=== PATIENT | male | born 1955 | race Caucasian/White ===

== ENCOUNTER 2016-12-09 20:59 | Observation (INO) | payer MEDICARE ==
--- NOTE | ~2016-12-09 | DS ---
Discharge Summary [facility] [address] [place]. [address] NAME: CHELO HAMPTON : 55 STATUS : DIS Hazel PAT#: [id number] AGE: 61 ADM/REG DATE : 12/09/16 MR#: [id number] REPORT SERV DATE: 12/11/16 DICTATED BY: GOLD CASTILLO DATE: 12/10/16 REPORT STATUS : Draft TRANSCRIBED BY: MODL DATE: 12/10/16 ADMISSION DATE: 12/09/2016 DISCHARGE DATE: 12/10/2016 CHIEF COMPLAINT ON ADMISSION: Dark stools with abdominal pain. DISCHARGING DIAGNOSES: 1. Diarrhea of uncertain etiology. 2. History of Damon's esophagitis. HISTORY OF PRESENT ILLNESS: Please see full H and P by Dr. Jamison Morse for details regarding initial presentation. HOSPITAL COURSE: 1. Dark stools for two weeks with diarrhea and abdominal cramping. The patient was seen by GI. The patient had EGD today. Hemoglobin has been stable. EGD was unremarkable with normal exam. Recommended use of Protonix 40 mg daily and return to GI Clinic for followup. In regard to his diarrhea, he said stool was less watery today and more mushy. has also had diarrhea for several weeks. Stool studies have been ordered, not sent at this time. GI has recommended outpatient followup. We will order for a followup appointment with first available with Dr. Corona. Hemoglobin is 13.9 at discharge, was 14.1 on admission. 2. History of diabetes. Continue outpatient regimen. Hemoglobin A1c is 8.3. This is uncontrolled at baseline. Follow up with primary care. DISCHARGE MEDICATIONS: Same as admission. Time spent on discharge, greater than 30 minutes. DNK/MODL Gold Castillo MD / [id number] CC: MD Joselito Painter MD
--- NOTE | ~2016-12-09 | HP ---
History And Physical [place] [id number] [facility] [place]. [address] NAME: CHELO HAMPTON : 55 STATUS : ADM Hazel PAT#: [id number] AGE: 61 ADM/REG DATE : 12/09/16 MR#: [id number] REPORT SERV DATE: 12/10/16 DICTATED BY: GAYATHRI SULTANA DATE: 12/10/16 REPORT STATUS : Draft TRANSCRIBED BY: MODL DATE: 12/10/16 DATE OF ADMISSION: 12/09/2016 CHIEF COMPLAINT: Dark stools with abdominal pain. HISTORY OF PRESENT ILLNESS: The patient is a 61-year-old male with past medical history of Damon's esophagitis, pancreatitis, chronic GI bleed, COPD, hypertension, coronary artery disease status post CABG, prior tobacco history, has quit over year, insulin dependent diabetes, who presents after having two weeks of diarrhea and dark stools. The patient has exposures with his having similar symptoms although hers are not dark stools, but does have diarrhea. Symptoms have been constant, moderate severity, up to 6-7 bowel movements daily that have been dark with cramping pressure. Medication given in emergency room has resolved these symptoms with Levsin. There are no radiating symptoms. The patient has had resultant weakness but no nausea, vomiting, diaphoresis, shortness of breath, fever, chills, cough or wheezing or palpitations but does have occasional symptomatic orthostasis when he bends over. Symptoms are worsened with bending over, relieved by resting and Levsin that was given in emergency room. Symptoms are significantly improved and better at this time. He does take a daily 81 mg aspirin but does have episodes which his blood sugars are quite uncontrolled with highs in 300s, lows in 50s. REVIEW OF SYSTEMS: GENERAL: No fevers, but does have mild weakness. EYES: No pain or visual changes. ENT: No congestion or ear pain. NEURO: No headache, but does have mild dizziness with bending over. SKIN: No rashes or bruising. RESPIRATORY: No shortness of breath or cough. CV: No chest pain or palpitations. GI: Does have diarrhea with dark stools, abdominal pain. No vomiting. : No dysuria, hematuria. MUSCULOSKELETAL: No myalgias or arthralgias. ENDO: Does have mild increased fatigue, but no polyuria. HEME: No bleeding or bruising. IMMUNOLOGIC: No rhinorrhea. PSYCH: No confusion or anxiety. PAST MEDICAL HISTORY: Insulin-dependent diabetes, hyperlipidemia, chronic pancreatitis secondary to pancreatic stone, severe Damon's esophagus with hiatal hernia on high-dose PPI history, history of GI bleed, coronary disease status post CABG, hyperlipidemia. SURGICAL HISTORY: Hammertoe left foot, hardware surgery around 20 years ago, pancreatic duct, stone removal, surgery for hiatal hernia by Dr. Trivedi, and CABG. ALLERGIES: TO MORPHINE. SOCIAL HISTORY: , accompanied by . Prior smoker up to 2 packs a day. Prior History And Physical [address] 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 Has quit smoking over a year ago. No alcohol or illicits. FAMILY HISTORY: Brother with gallstones and heart disease in mother. Father had heart disease, hypertension, and diabetes also in mother. ALLERGIES: MORPHINE. HOME MEDICATIONS: Refresh tears, Halfprin, atorvastatin, Bentyl, vitamin D, hydrochlorothiazide, [place], NovoLog, Lantus, Mag oxide, Glucophage, Centrum, Prilosec, Incruse tablets, Creon, Imitrex, and Effexor. PHYSICAL EXAMINATION: VITAL SIGNS: The patient blood pressure 137/95, temperature 98.5, pulse 93, respirations 16, O2 sats 97%. GENERAL: Elderly, no acute distress, calm. EYES: No scleral icterus. EOMI. ENT: Dry mucous membranes. Tongue midline. HEAD: Normocephalic and atraumatic. RESPIRATORY: Clear to auscultation. No wheezes or rales. CV: Regular rate. No rubs. No pedal edema. GI: Soft, mild tenderness to left quadrant, negative rebound. No fluid wave. : Deferred. MUSCULOSKELETAL: Moves all extremities x4. SKIN: Warm, dry. LYMPH: No cervical or supraclavicular lymphadenopathy. HEME: No bleeding or bruising. NEURO: Alert and oriented. Moves all extremities x4. Gait not tested. PSYCH: Appropriate mood and affect. HEME: Positive per ED staff. LABS: CBC: WBC 11, H and H 14.1 and 41.2, platelets 273. INR 1.1. CMP grossly within normal limits with elevated blood glucose of 213. CT abdomen and pelvis, no acute abdominal or pelvic pathology. Mild diverticulosis, sigmoid colon. No acute diverticulitis, simple 5.4 left cyst similar to prior exam. ASSESSMENT AND PLAN: 1. Dark stools with diarrhea. 2. Hyperglycemia, diabetes type 2. 3. Hypertension. 4. Chronic pancreatitis. 5. Coronary artery disease status post CABG history. 6. Damon's esophagitis. 7. Hyperlipidemia. 8. Tobacco use history, quit over year ago. PLAN: History And Physical [address] [address] NAME: CHELO HAMPTON : 55 STATUS : ADM Hazel PAT#: [id number] AGE: 61 ADM/REG DATE : 12/09/16 MR#: [id number] REPORT SERV DATE: 12/10/16 DICTATED BY: GAYATHRI SULTANA DATE: 12/10/16 REPORT STATUS : Draft TRANSCRIBED BY: MARY DATE: 12/10/16 1. For dark stools and diarrhea, does have history of upper esophagitis, was previously on high-dose PPI currently on 40 mg p.o. daily. We will do serial H and Hs, retic, iron studies, H and H q.8 h. He was to have outpatient workup with Dr. Corona but admitted due to symptomatic weakness and approximately 2 weeks of dark stools. Hemodynamically stable. We will monitor serial H and Hs, PPI drip, and GI evaluation. 2. Hyperglycemia with diabetes type 2. Sliding scale insulin. Check A1c. Decrease home dose. The patient has had very labile blood sugars, and diabetic education. 3. Hypertension, currently acceptable, monitor with GI bleed. 4. Chronic pancreatitis, monitor symptoms, check lipase. 5. Coronary artery disease status post CABG. Continue home medications. Transfuse if hemoglobin less than 8. 6. Damon's esophagitis, PPI drip. 7. Hyperlipidemia, statin. 8. Tobacco use history, quit over a year ago. All questions answered with patient and family at bedside. DDN/MODL Gayathri Sultana MD / [id number] CC: Messi Griffith Jr, MD
--- NOTE | ~2016-12-09 | CN ---
Consultation Report [facility] [address] [place]. [address] NAME: CHELO MATTHEWS : 55 STATUS : ADM Hazel PAT#: [id number] AGE: 61 ADM/REG DATE : 12/09/16 MR#: [id number] REPORT SERV DATE: 12/10/16 DICTATED BY: BRINDA HERNANDEZ DATE: 12/10/16 REPORT STATUS : Draft TRANSCRIBED BY: MODL DATE: 12/10/16 GI CONSULTATION DATE OF CONSULTATION: 12/10/2016 REASON FOR CONSULTATION: Evaluation and management of black stools, diarrhea, abdominal pain and cramping. HISTORY OF PRESENT ILLNESS: Mr. Matthews is a 61-year-old male patient known to Dr. Corona in the outpatient setting, who presented to [facility] on the 12/09/2016 with a chief complaint of melena, diarrhea, ongoing for two weeks. He had called the office yesterday and was directed by the office staff to come to [facility] secondary to his symptoms of black stools. He states that his had had similar symptoms a week prior to his symptom onset but her's has since subsided. She did have diarrhea but not black tarry stools. He states that his stools are black, "coal" like appearance. He complains of abdominal cramps that are lessened with bowel movements. He has had nausea but no emesis. He has had some chilling but no fevers. He denies any recent antibiotic usage. He is only on an 81 mg aspirin a day; denying any NSAID use, specifically no Aleve, ibuprofen, Motrin, Excedrin, Goody's Powder, [place] powders, or BC powders. He states that he is unable to really eat anything of any significance secondary to immediate abdominal pain and cramping and diarrhea. He had a CT scan done on admission, non-contrasted. No acute abdominal or pelvic pathology was seen. He did have some mild diverticulosis but no acute diverticulitis pattern. Hemoglobin is stable at 14.1, presently is 13.5. He had a slightly elevated white count on admission at 11.0. He is presently still having diarrhea, but no stool studies have been sent. I have discussed with the patient as Dr. Waller was contacted overnight, made the patient n.p.o. for EGD today. We will pursue EGD. Risks, benefits, alternatives, and complications were detailed for him to include, but not limited to, risk of bleeding, perforation, infection, reaction to medications as well as cardiac and pulmonary side effects. He gives consent to proceed. His last EGD was done in 2013. On 03/10/2014, he had EGD at the time of pancreatic stent removal. He had a normal esophagus, findings of a Alejandro fundoplication, and otherwise the duodenum was normal. Also, his last colonoscopy was on 07/03/2014. Findings on that exam, he had two 5 to 6 mm polyps in the sigmoid colon that were removed, a 6 mm polyp in the descending colon removed, 4 mm polyp in the ascending colon removed, and diverticulosis in the sigmoid colon. He was seen in the office in September of 2016. At that time, he only had some intermittent periumbilical pain, bloating distention after meals being noted. PAST MEDICAL HISTORY: Positive for diverticulosis, colon polyps, Damon's esophagus, chronic pancreatitis, hyperlipidemia, type 2 diabetes,hiatal hernia with Alejandro fundoplication, past history of GI bleeding, coronary artery disease status post status post CABG. SURGICAL HISTORY: Alejandro fundoplication, hammertoe of the left foot surgery, pancreatic duct stent with stone removal, CABG. Consultation Report [address] [place]. [address] NAME: CHELO MATTHEWS : 55 STATUS : ADM Hazel PAT#: [id number] AGE: 61 ADM/REG DATE : 12/09/16 MR#: [id number] REPORT SERV DATE: 12/10/16 DICTATED BY: BRINDA HERNANDEZ DATE: 12/10/16 REPORT STATUS : Draft TRANSCRIBED BY: MARY DATE: 12/10/16 SOCIAL HISTORY: He is . Previous history of tobacco. No alcohol nor illicits. FAMILY HISTORY: Noncontributory from a GI standpoint. ALLERGIES: MORPHINE. HOME MEDICATIONS: Refresh, aspirin, Lipitor, Bentyl, vitamin D, hydrochlorothiazide, [place], NovoLog, Lantus, magnesium oxide, Glucophage, Centrum, Prilosec, Incruse Ellipta, Creon, Imitrex, and Effexor. REVIEW OF SYSTEMS: A 10-point review of systems obtained. Pertinent positives addressed in the history of present illness. PERTINENT LABORATORY DATA: Sodium 139, potassium 4.1, BUN is 12, creatinine 0.83. White count 9.2, hemoglobin 13.5, hematocrit 39.9, platelet count 256. INR of 1.1. PHYSICAL EXAMINATION: VITAL SIGNS: Temperature 97.7, pulse 92, respirations 18, blood pressure 138/67. NEUROLOGIC: Physical exam reveals an alert male, sitting up in a chair with no focal deficits. GENERAL: Cooperative, in no apparent distress. Awake, alert, oriented x3. HEAD EARS, EYES, NOSE, AND THROAT: Anicteric. Pupils equal, round, reactive to light and accommodation. Normocephalic and atraumatic. NECK: No JVD. No palpable nodes. Supple. LUNGS: Decreased in the bases, clear in the upper lobes with normal respiratory effort exhibited. Equal expansion. CARDIOVASCULAR: Regular rate and rhythm. ABDOMEN: Soft, mildly tender to palpation diffusely, nondistended. No rebound or guarding elicited on exam. No organomegaly appreciated. EXTREMITIES: No edema. Normal distal pulses. SKIN: Warm, dry, and intact. ASSESSMENT: 1. "Melena" for the last two weeks. 2. Diarrhea with abdominal cramping. Differential diagnosis includes gastroenteritis, peptic ulcer disease, irritable bowel syndrome. 3. Weakness. 4. History of Damon's esophagus. 5. History of diverticulosis. PLAN: 1. NPO. 2. Stool studies. Consultation Report [address] [address] NAME: CHELO MATTHEWS : 55 STATUS : ADM Hazel PAT#: [id number] AGE: 61 ADM/REG DATE : 12/09/16 MR#: [id number] REPORT SERV DATE: 12/10/16 DICTATED BY: BRINDA HERNANDEZ DATE: 12/10/16 REPORT STATUS : Draft TRANSCRIBED BY: MODL DATE: 12/10/16 3. EGD today. 4. Add Florastor. 5. Other recommendations to follow endoscopy. ANGELIKA/MARY DELTA Garcia / [id number]
--- NOTE | ~2016-12-09 | EGD ---
EGD REPORT [facility] [address] [address] NAME: CHELO MATTHEWS : 55 STATUS : ADM Hazel PAT#: [id number] AGE: 61 ADM/REG DATE : 12/09/16 MR#: [id number] REPORT SERV DATE: 12/10/16 DICTATED BY: MESSI MIGUEL DATE: 12/10/16 REPORT STATUS : Draft TRANSCRIBED BY: [facility] DATE: 12/10/16 Endoscopy Center Patient Name: Chelo Matthews Date of : 1955 Attending MD: MESSI MIGUEL MD Procedure Date No Time: 12/10/2016 Procedure: Upper GI endoscopy Indications: Melena, Suspected upper gastrointestinal bleeding Referring MD: YUE HAMPTON Medicines: Monitored Anesthesia Care Complications: No immediate complications. Estimated blood loss: None. Procedure: After obtaining informed consent, the endoscope was passed under direct vision. Throughout the procedure, the patient's blood pressure, pulse, and oxygen saturations were monitored continuously. The GIF [id number] was introduced through the mouth, and advanced to the second part of duodenum. The upper GI endoscopy was accomplished without difficulty. The patient tolerated the procedure well. Findings: The examined esophagus was normal. Evidence of an anti-reflux surgical site was found in the gastric fundus. The anastomosis was characterized by healthy appearing mucosa. The examined duodenum was normal. Impression: - An anti-reflux surgical site was found, anastomosis characterized by healthy appearing mucosa. - Exam otherwise normal Recommendation: - Return patient to hospital gardner for observation. - Use Protonix (pantoprazole) 40 mg PO daily. - Return to GI clinic at the next available appointment. Procedure Code(s): --- Professional --- 62677, Esophagogastroduodenoscopy, flexible, transoral; diagnostic, including collection of specimen(s) by brushing or washing, when performed (separate procedure) Diagnosis Code(s): --- Professional --- Z98.89, Other specified postprocedural states K92.1, Melena CPT copyright 2013 [employer]. All rights reserved. EGD REPORT [facility] [address] [place] [address]. [address] NAME: CHELO MATTHEWS : 55 STATUS : ADM Hazel PAT#: [id number] AGE: 61 ADM/REG DATE : 12/09/16 MR#: [id number] REPORT SERV DATE: 12/10/16 DICTATED BY: MESSI MIGUEL DATE: 12/10/16 REPORT STATUS : Draft TRANSCRIBED BY: [employer] DATE: 12/10/16 The codes documented in this report are preliminary and upon oil gas and pipe tester review may be revised to meet current compliance requirements. Messi Miguel MD MESSI MIGUEL MD 12/10/2016 10:46 AM This report has been signed electronically. Number of Addenda: 0 Note Initiated On: 12/10/2016 10:19 AM Scope Withdrawal Time 0 hours 0 minutes [address] [place] [id number]
[2016-12-09 17:58] LABS: BASOPHILS 0.5 %; BASOPHILS ABSOLUTE 0.05 10/3/uL (0.0-0.16); EOSINOPHILS 2.3 %; EOSINOPHILS ABSOLUTE 0.25 10/3/uL (0.0-0.53); ER CBC TAT 0 Hrs 05 Mins; HEMATOCRIT 41.2 % (40.0-51.0); HEMOGLOBIN 14.1 g/dL (13.6-17.8); IMMATURE GRANULOCYTES 0.5 %; IMMATURE GRANULOCYTES ABSOLUTE 0.06 10/3/uL (0.0-0.11); LYMPHOCYTES 15.3 %; LYMPHOCYTES ABSOLUTE 1.68 10/3/uL (0.67-4.30); MEAN CORPUS HGB CONC 34.2 g/dL (32.0-36.0); MEAN CORPUSCULAR HEMOGLOB 29.7 pg (26.0-34.0); MEAN CORPUSCULAR VOLUME 86.7 fL (80-100); MEAN PLATELET VOLUME 9.7 fL (9.2-13.0); MONOCYTES 10.9 %; MONOCYTES ABSOLUTE 1.19 10/3/uL (0.21-1.20); NEUTROPHILS 70.5 %; NEUTROPHILS ABSOLUTE 7.73 10/3/uL (2.02-8.40); RBC DISTRIBUTION WIDTH 14.1 % (12.0-16.0); RED CELL COUNT 4.75 10/6/uL (4.7-6.1)
[2016-12-09 18:00] LABS: MANUAL DIFF NO %; PLATELET COUNT 273 10/3/uL (150-400)
[2016-12-09 18:12] LABS: INTERNATIONAL NORMAL RATI 1.1 UNITS (-); PROTIME (NOT ORD) 13.7 SEC (12.0-14.5)
[2016-12-09 18:13] LABS: PARTIAL THROMBO TIME 33.8 SEC (22.5-37.2)
[2016-12-09 18:16] LABS: ALBUMIN 3.5 G/DL (3.5-5.0); BUN (BLOOD UREA NITROGEN) 10 MG/DL (6-23); CALCIUM, SERUM 8.9 MG/DL (8.5-10.4); CHLORIDE, SERUM 101 MMOL/L (96-112); CO2 (CARBON DIOXIDE) 25 MMOL/L (24-34); CREATININE 0.91 MG/DL (0.70-1.30); GFR AFRICAN AMERICAN 105 ML/MIN (>=60); GFR NON AFRICAN AMERICAN 91 ML/MIN (>=60); GLOBULIN 3.6 G/DL (2.5-4.1); GLUCOSE, SERUM 213 MG/DL (60-99); POTASSIUM, SERUM 4.1 MMOL/L (3.5-5.3); SGOT(AST) 23 U/L (5-40); SGPT(ALT) 37 U/L (5-65); SODIUM, SERUM 138 MMOL/L (135-148); TOTAL BILIRUBIN 0.4 MG/DL (0-1.2); TOTAL PROTEIN 7.1 G/DL (6.0-8.5)
[2016-12-09 18:19] LABS: ALKALINE PHOSPHATASE 102 U/L (45-117)
[~2016-12-09 20:59] MED LIST: AMIT10 PO; ASAB PO; AUG500 PO; BENTYL10 PO; CENTRUM TAB1 TAB PO; CREON DR 36,001 EACH PO; CREON12000 UNT PO; FLORASTOR250 MG PO; GLUCOPHAGE1000 MG PO; HUMALOG SC; IMDUR30 PO; IMITREX50 PO; INSNOVR SC; JANUVIA100 MG PO; LANTUSCART SC; LEVBID PO; LEVEMFLXPN SC; LIPITOR40 PO; LOP25 PO; NEUR300 PO; NORCO1 TA1 PO; NORCO1 TA2 PO; NORCO1 TAB PO; P10 PO; P20 PO; P5 PO; PR25 PO; PRAVACHOL40 MG PO; PRILO PO; PROAIR HFA INH; PROTONIX PO; REFRESH TEAR0.5 % OP; SPIRIVA INH; STARLIX60 PO; SYSTANE OPH; WELLXL150 PO; ZEGERID1 CAP PO; ZENPEP5000 UNIT PO; ZOFRAN ODT4 MG PO; [UNRECOGNIZED DRUG - CODE]
[2016-12-09] MEDS ORDERED: NOVOPEN SC ×3 (23:35→23:37)
[2016-12-09] MEDS ORDERED: LANTUSCART SC (23:37)
[2016-12-09] MEDS ORDERED: HALF81 PO (23:38)
[2016-12-09] MEDS ORDERED: INCRUSE ELLI62.5 MCG INH (23:38)
[2016-12-09] MEDS ORDERED: GLUCOPHAGE1000 MG PO (23:38)
[2016-12-09] MEDS ORDERED: HCTZ12.5 PO (23:39)
[2016-12-09] MEDS ORDERED: EFFEX75 PO (23:39)
[2016-12-09] MEDS ORDERED: MAGOX4 PO (23:40)
[2016-12-09] MEDS ORDERED: LIPITOR40 PO (23:40)
[2016-12-09] MEDS ORDERED: BENTYL10 PO (23:40)
[2016-12-09] MEDS ORDERED: VITD PO (23:40)
[2016-12-09] MEDS ORDERED: CREON 24,000 UNITS PO (23:41)
[2016-12-09] MEDS ORDERED: PRILOSEC40 MG PO (23:41)
[2016-12-09] MEDS ORDERED: NORCO1 TAB PO (23:42)
[2016-12-09] MEDS ORDERED: CENTRUM PO (23:42)
[2016-12-09] MEDS ORDERED: REFRESH OPH SO0.3 ML OPH (23:42)
[2016-12-09] MEDS ORDERED: IMITREX50 PO (23:44)
[2016-12-10 03:43] LABS: BASOPHILS 0.5 %; BASOPHILS ABSOLUTE 0.05 10/3/uL (0.0-0.16); EOSINOPHILS 3.2 %; EOSINOPHILS ABSOLUTE 0.29 10/3/uL (0.0-0.53); HEMATOCRIT 39.9 % (40.0-51.0); HEMOGLOBIN 13.5 g/dL (13.6-17.8); IMMATURE GRANULOCYTES 0.9 %; IMMATURE GRANULOCYTES ABSOLUTE 0.08 10/3/uL (0.0-0.11); LYMPHOCYTES 22.1 %; LYMPHOCYTES ABSOLUTE 2.03 10/3/uL (0.67-4.30); MEAN CORPUS HGB CONC 33.8 g/dL (32.0-36.0); MEAN CORPUSCULAR HEMOGLOB 29.7 pg (26.0-34.0); MEAN CORPUSCULAR VOLUME 87.7 fL (80-100); MEAN PLATELET VOLUME 9.8 fL (9.2-13.0); MONOCYTES 8.9 %; MONOCYTES ABSOLUTE 0.82 10/3/uL (0.21-1.20); NEUTROPHILS 64.4 %; NEUTROPHILS ABSOLUTE 5.91 10/3/uL (2.02-8.40); PLATELET COUNT 256 10/3/uL (150-400); RBC DISTRIBUTION WIDTH 13.9 % (12.0-16.0); RED CELL COUNT 4.55 10/6/uL (4.7-6.1); RETICULOCYTE COUNT 1.9 % (0.5-2.5); RETICULOCYTE COUNT ABSOLUTE 85.1 10/3/uL (20.2-119.8); WHITE BLOOD CELLS 9.2 10/3/uL (4.5-10.5)
[2016-12-10 03:46] LABS: MANUAL DIFF NO %
[2016-12-10 04:34] LABS: A/G RATIO 0.9 (0.7-1.9); ALBUMIN 3.2 G/DL (3.5-5.0); ALKALINE PHOSPHATASE 91 U/L (45-117); BUN (BLOOD UREA NITROGEN) 12 MG/DL (6-23); CALCIUM, SERUM 8.8 MG/DL (8.5-10.4); CHLORIDE, SERUM 103 MMOL/L (96-112); CO2 (CARBON DIOXIDE) 28 MMOL/L (24-34); CREATININE 0.83 MG/DL (0.70-1.30); FERRITIN 76 NG/ML (26-388); GFR AFRICAN AMERICAN 110 ML/MIN (>=60); GFR NON AFRICAN AMERICAN 95 ML/MIN (>=60); GLOBULIN 3.6 G/DL (2.5-4.1); GLUCOSE, SERUM 196 MG/DL (60-99); IRON BINDING CAPACITY 282 MCG/DL (250-450); IRON, SERUM 51 MCG/DL (35-150); PHOSPHORUS, SERUM 2.3 MG/DL (2.5-4.5); POTASSIUM, SERUM 4.1 MMOL/L (3.5-5.3); SGOT(AST) 16 U/L (5-40); SGPT(ALT) 31 U/L (5-65); SODIUM, SERUM 139 MMOL/L (135-148); TOTAL BILIRUBIN 0.4 MG/DL (0-1.2); TOTAL PROTEIN 6.8 G/DL (6.0-8.5); TROPONIN I <0.02 NG/ML (<0.05)
[2016-12-10 04:38] LABS: FOLATE 28.4 NG/ML (>5.2)
[2016-12-10 11:43] LABS: HEMATOCRIT 40.4 % (40.0-51.0); HEMOGLOBIN 13.9 g/dL (13.6-17.8)
[2017-02-06] MEDS ORDERED: TRESIBA FL200 UNIT/1 (15:40)
[2017-02-06] MEDS ORDERED: GLUCOPHAGE1000 MG (15:44)
[2017-02-06] MEDS ORDERED: SPIRIVA INH (16:01)
== END 2016-12-10 18:52 | disposition home or self-care (01) ==
LOC: ER 20:59 → CDU1 23:49
PROVIDERS: Emergency Medicine; Internal Medicine; Internal Medicine Gastroenterology
PROC: 0DJ08ZZ Inspection of Upper Intestinal Tract, Via Natural or Artificial Opening Endoscopic (ICD-10-PCS; principal; 2016-12-10 10:30)
DX: R19.7 Diarrhea, unspecified (principal); R73.9 Hyperglycemia, unspecified; E11.9 Type 2 diabetes mellitus without complications; I10 Essential (primary) hypertension; K86.1 Other chronic pancreatitis; J44.9 Chronic obstructive pulmonary disease, unspecified; G47.33 Obstructive sleep apnea (adult) (pediatric); I25.10 Atherosclerotic heart disease of native coronary artery without angina pectoris; K31.84 Gastroparesis; K22.70 Barrett's esophagus without dysplasia; E78.5 Hyperlipidemia, unspecified; Z95.1 Presence of aortocoronary bypass graft; Z88.5 Allergy status to narcotic agent
CPT/HCPCS: 36415; 74176; 80053; 82150; 82607; 82728; 82746; 82962; 83036; 83540; 83550; 83690; 83735; 84100; 84484; 85014; 85018; 85025; 85045; 85610; 85730; 86850; 86900; 86901; 86920; 93005; 96374; 96375; 96376; 99285; A9270-GY; C9113; G0378; J1170; J1980